=== PATIENT | male | born 1935 | race Hispanic/Latino ===

== ENCOUNTER 2017-03-20 06:37 | Day surgery (SDC) | payer MEDICARE ==
[~2017-03-20 06:37] MED LIST: ANCEF/STERILE WATER 2 GM/20 ML 2 GM/20 ML SYRINGE IV NR; NACL 0.9% 1000 ML 1,000 ML IV SCH
[2017-03-20 07:51] LABS: Basophils % (Auto) 0.6 % (0.0-1.8); Eosinophils % (Auto) 3.2 % (0.0-4.3); Hematocrit 37.1 % (35.5-45.6); Hemoglobin 12.3 gm/dl (11.8-15.2); Mean Corpuscular HGB Conc 33 % (32-34); Mean Corpuscular Hemoglobin 30 pg (28-32); Mean Corpuscular Volume 92 fl (84-94); Platelet Count 182 K/mm3 (140-440); Red Blood Count 4.04 M/mm3 (3.65-5.03); Red Cell Distribution Width 14.5 % (13.2-15.2); White Blood Count 8.3 K/mm3 (4.5-11.0)
[2017-03-20] MEDS ORDERED: NACL 0.9% 500 ML 500 ML IV SCH (08:00)
[2017-03-20 08:01] LABS: INR 2.75 (0.87-1.13)
[2017-03-20 08:02] LABS: Partial Thromboplastin Time 39.6 Sec. (24.2-36.6)
[2017-03-20 08:04] LABS: BUN/Creatinine Ratio 12.5; Calcium 8.7 mg/dL (8.4-10.2); Chloride 98.3 mmol/L (98-107)
[2017-03-20] MEDS ORDERED: HEPARIN/NS 5000 UNIT/500ML(CATH LAB) 1,000 ML IR ONE (09:52)
[2017-03-20] MEDS ORDERED: ANCEF/STERILE WATER 2 GM/20 ML 2 GM/20 ML SYRINGE IV ONE (09:53)
[2017-03-20] MEDS ORDERED: XYLOCAINE 1%/ EPI 1:100,000 INFILTRATI ONE (09:53)
[2017-03-20] MEDS: VERSED ONE ×5 (10:39→11:48)
[2017-03-20] MEDS: SUBLIMAZE ONE ×5 (10:39→11:48)
[2017-03-20] MEDS: HEPARIN 10,000 UNITS/10 ML ONE ×2 (10:55→11:40)
--- NOTE | 2017-03-20 12:15 | Short Stay Summary ---
Short Stay Documentation Date of service: 03/20/17 - History Principal diagnosis: RLE PVD with gangrene H&P: obtained from office - Allergies and Medications Current Medications: Allergies No Known Allergies Allergy (Verified 03/20/17 08:11) Home Medications Medication Instructions Recorded Confirmed Last Taken Type Carvedilol [Coreg] 25 mg PO BID 10/11/16 03/20/17 03/19/17 History Citalopram [Celexa] 20 mg PO QDAY 10/11/16 03/20/17 03/19/17 History Furosemide [Lasix TAB] 40 mg PO QDAY 10/11/16 03/20/17 03/19/17 History Insulin NPL/Insulin Lispro 20 units SQ QAM 10/11/16 03/20/17 03/19/17 History [HumaLOG Mix 75-25 Kwikpen] Pravastatin Sodium [Pravastatin] 20 mg PO QHS 10/11/16 03/20/17 03/19/17 History Warfarin [Coumadin] 3 mg PO QDAY 10/11/16 03/20/17 03/19/17 History Active Medications Cefazolin Sodium (Ancef/Sterile Water 2 Gm/20 Ml) 2 gm in 20 mls @ 80 mls/hr IV PREOP NR PRN Reason: Protocol Stop: 03/20/17 23:00 Last Admin: 03/20/17 10:30 Dose: 20 mls Sodium Chloride (Nacl 0.9% 500 Ml) 500 mls @ 50 mls/hr IV DIRECT ROSIO Last Admin: 03/20/17 10:40 Dose: 500 mls - Brief post op/procedure progress note Date of procedure: 03/20/17 Pre-op diagnosis: RLE PVD with gangrene Post-op diagnosis: same Procedure: RLE revasc Anesthesia: local Surgeon: MIKAEL LOPEZ Estimated blood loss: minimal Pathology: none Condition: stable - Disposition Condition at discharge: Good Disposition: DISCHARGED TO HOME OR SELFCARE Short Stay Discharge Plan Activity: advance as tolerated Weight Bearing Status: Weight Bear as Tolerated Diet: regular Wound: keep clean and dry, per your surgeon's advice Follow up with: SANAM LAWLER MD [Primary Care Provider] - 7 Days
--- NOTE | 2017-03-20 12:26 | Operative Report ---
Operative Report Operative Report: EXAM: LEFT LOWER EXTREMITY REVASCULARIZATION CLINICAL INDICATION: PERIPHERAL VASCULAR DISEASE WITH GANGRENE ALONG THE LATERAL ASPECT OF THE LEFT FOOT DATE: 03/20/2017 PROCEDURE: Following an explanation of the risks, benefits and alternatives; written informed consent was obtained. The patient was brought to the angiographic suite and placed in supine position on the examination table. Initial ultrasound evaluation of the right groin demonstrated a widely patent right common femoral artery. The right groin was prepped and draped in the usual sterile fashion. 1% lidocaine was used for anesthesia. Under ultrasound guidance, the right common femoral artery was cannulated with a 7 cm 21-gauge needle. A 0.018 guidewire was advanced centrally. The needle was removed and a micro-sheath placed. The 0.018 guidewire was exchanged for a 0.035 guidewire and the micro-sheath exchanged for a 5 [place] vascular sheath. An Omni flush catheter was advanced over the guidewire to the distal abdominal aorta. Digital subtraction angiography was performed. The stent straight a widely patent distal abdominal aorta, widely patent bilateral on iliac arteries and bilateral external iliac arteries. The bifurcation was crossed using the Omni flush catheter and 0.035 guidewire. The catheter was advanced over the guidewire to the left external iliac artery, left superficial femoral artery proximally and then exchanged for a 4 [place] vertebral catheter which was advanced into the distal left superficial femoral artery. Angiography was performed at all these locations. This demonstrates a 70% stenosis at the origin of the left superficial femoral artery. The remaining superficial femoral artery is patent. The popliteal artery is patent. The anterior tibial artery is occluded in its mid and distal portion with delayed filling of the pedal vessels through collaterals. The posterior tibial artery is occluded in the midportion with delayed filling of the pedal vessels through collaterals. The peroneal artery is occluded in the mid and distal portions. The 5 [place] sheath was exchanged for a 6 [place] 90 cm sheath over the 0.035 guidewire. Selective cannulation of the anterior tibial artery was then performed using the 4 [place] vertebral catheter and a choice PT guidewire. The vertebral catheter was exchanged for an 018 [place] Blazer catheter which was advanced in the proximal anterior tibial artery. Selective angiography was performed which demonstrated only collateral flow distally. No target vessel was identified. Selective cannulation of the proximal posterior tibial artery was then performed using the choice PT guidewire and 4 [place] vertebral catheter. The vertebral catheter was exchanged for an 018 [place] Blazer catheter and together the catheter and guidewire were advanced into the lateral plantar artery on the foot. Angiography was performed which demonstrated appropriate positioning of the catheter. The Trailblazer catheter was then removed. Angioplasty of the posterior tibial artery was then performed using a 210 mm x 2.5 mm balloon insufflated to 8 abdelrahman for 3 minutes at multiple locations. The proximal or tibial artery was treated with a 3 mm x 120 20 mm balloon insufflated to 8 abdelrahman for 3 minutes. Post angioplasty imaging demonstrated brisk luminal flow throughout the posterior tibial artery on to the foot. At this point, the sheath was withdrawn proximally over the 0.035 guidewire and additional angiographic imaging obtained of the superficial femoral artery lesion and multiple projections. A decision was made to treat this lesion with a drug-coated balloon. Angioplasty with a 5 mm x 40 mm balloon was first performed and demonstrated improved luminal flow. Drug-coated balloon angioplasty with a 5 mm x 40 mm [employer] drug-coated balloon was then performed for 3 minutes at 6 abdelrahman. Post angioplasty imaging of the proximal superficial femoral artery demonstrated residual 20% stenosis. At this point, the catheters, guidewires and sheaths were removed and hemostasis achieved using an Angio-Seal arterial closure device. A sterile dressing was then applied. The patient tolerated the procedure well. There were no immediate post procedure complications. Conscious sedation was performed under the guidance of radiologic nursing. Continuous cardiopulmonary monitoring was utilized. IMPRESSION: 1) Left lower extremity angiography demonstrating 70% stenosis at the origin of the left superficial femoral artery, occlusion of the mid and distal portions of the anterior tibial artery, posterior tibial artery and peroneal artery. 2) Revascularization of the left superficial femoral artery using drug-coated balloon angioplasty. 3) Revascularization of the posterior tibial artery using angioplasty.
[2017-03-20 13:50] VITALS: BP 166/71
== END 2017-03-20 14:15 | disposition home or self-care (01) ==
LOC: OPU 06:37
PROVIDERS: ATTEND Radiology Diagnostic Radiology
DX: I70.244 Atherosclerosis of native arteries of left leg with ulceration of heel and midfoot (principal); E08.621 Diabetes mellitus due to underlying condition with foot ulcer; I11.0 Hypertensive heart disease with heart failure; I50.9 Heart failure, unspecified; E78.00 Pure hypercholesterolemia, unspecified; I48.91 Unspecified atrial fibrillation; Z98.42 Cataract extraction status, left eye; Z98.890 Other specified postprocedural states; F17.210 Nicotine dependence, cigarettes, uncomplicated; Z83.3 Family history of diabetes mellitus; Z82.49 Family history of ischemic heart disease and other diseases of the circulatory system; Z79.4 Long term (current) use of insulin; Z79.899 Other long term (current) drug therapy
CPT/HCPCS: 36415; 37224; 37228; 75710; 80048; 82962; 85025; 85610; 85730; C1725; C1760; C1769; C1887; J0690; J1644; J2250; J3010; J7040; Q9967